=== PATIENT | female | born 1960 | race Caucasian/White ===

== ENCOUNTER 2017-05-18 20:49 | Emergency (ER) | payer OTHER ==
[2017-05-18 21:11] VITALS: O2SAT 97
--- NOTE | 2017-05-18 22:08 | C.PDOC ---
History Of Present Illness 57 year old female presents to the ED with complaints of a LUQ pain that radiates to her back with occasional reflux, that has been occurring for approximately a month. Patient reports PMD recommended her to have an outpatient abdominal CT done; she has one scheduled for 05/28, but states she did not want to wait. Patient denies acute abdominal pain at this time, with no nausea, vomiting, fever, or chills. denies cough and chest pain. no sob. no urinary symptoms. Time Seen by Provider: 05/18/17 21:52 Chief Complaint (Nursing): Abdominal Pain History Per: Patient History/Exam Limitations: no limitations Onset/Duration Of Symptoms: Days Current Symptoms Are (Timing): Still Present Context: Other Location Of Pain/Discomfort: LUQ Radiation Of Pain To:: Back Quality Of Discomfort: Unable To Describe Associated Symptoms: Other (Reflux). denies: Fever, Chills, Nausea, Vomiting Exacerbating Factors: None Alleviating Factors: None Recent travel outside of the [place]: No Abnormal Vaginal Bleeding: No Past Medical History Reviewed: Historical Data, Nursing Documentation, Vital Signs Vital Signs: Last Vital Signs Temp 98.9 F 05/19/17 02:22 Pulse 90 05/19/17 02:22 Resp 16 05/19/17 02:22 BP 128/78 05/19/17 02:22 Pulse Ox 97 05/21/17 21:48 - Medical History PMH: HTN (?), Hyperlipidemia, Migraine Surgical History: No Surg Hx - [facility] TETANUS TOXOID ADMINIST (08/25/14) Family History: States: Unknown Family Hx - Social History Hx Tobacco Use: No Hx Alcohol Use: No Hx Substance Use: No - Immunization History Hx Tetanus Toxoid Vaccination: No Hx Influenza Vaccination: No Hx Pneumococcal Vaccination: No Review Of Systems Constitutional: Negative for: Fever, Chills Gastrointestinal: Positive for: Abdominal Pain, Other (Reflux). Negative for: Nausea, Vomiting Musculoskeletal: Positive for: Back Pain (Radiating from abdomen) Physical Exam - Physical Exam Appears: Non-toxic, No Acute Distress Skin: Normal Color, Warm, Dry Head: Atraumatic, Normacephalic Oral Mucosa: Moist Throat: Normal, No Erythema Neck: Normal, No Midline Cervical Tenderness, Supple Chest: Symmetrical, No Deformity, No Tenderness Cardiovascular: Rhythm Regular, No Murmur Respiratory: Normal Breath Sounds, No Accessory Muscle Use, No Rales, No Rhonchi , No Wheezing Gastrointestinal/Abdominal: Soft, Tenderness (mild luq tenderness/left flank), No Distention, No Guarding, No Rebound Back: Normal Inspection, No CVA Tenderness Extremity: No Tenderness, No Calf Tenderness Neurological/Psych: Oriented x3, Normal Speech, Normal Cognition, Normal Motor, Normal Sensation ED Course And Treatment - Laboratory Results Result Diagrams: 05/18/17 23:01 05/18/17 23:01 O2 Sat by Pulse Oximetry: 97 (Room air) Pulse Ox Interpretation: Normal - CT Scan/US CT abd/pel Other Rad Studies (CT/US): Read By Radiologist, Radiology Report Reviewed CT/US Interpretation: EXAM: CT Abdomen and Pelvis With Intravenous Contrast. CLINICAL HISTORY: 57 years old, female; Pain; Abdominal pain; Additional info: Abd pain. TECHNIQUE: Axial computed tomography images of the abdomen and pelvis with intravenous contrast. All CT. scans at this facility use one or more dose reduction techniques, viz.: automated exposure control;. ma/kV adjustment per patient size (including targeted exams where dose is matched to indication; i.e. head); or iterative reconstruction technique. Coronal and sagittal reformatted images were created and reviewed. CONTRAST: 100 mL of [id number] administered intravenously. COMPARISON: No relevant prior studies available. FINDINGS: Artifacts: Motion artifact does moderately limit the sensitivity of this examination. Lower thorax: The visualized portions of the lung bases are normal. ABDOMEN: Liver: There are no focal liver lesions present. Gallbladder and bile ducts: The gallbladder is normal. No calcified stones. No ductal dilation. Pancreas: The pancreas is normal. No ductal dilation. Spleen: The spleen is normal. Adrenals: The adrenal glands are normal. Kidneys and ureters: The kidneys are normal. No hydronephrosis. Stomach and bowel: The stomach is normal. Colonic constipation is present. There is no evidence. of intestinal obstruction. No mucosal thickening. Appendix: A normal appendix is identified. PELVIS: Bladder: The bladder is normal. Reproductive: The uterus is normal. ABDOMEN and PELVIS: Intraperitoneal space: There is no evidence of free intraperitoneal fluid. There is no free. intraperitoneal air. Bones/joints: There are mild degenerative changes present. There is mild diffuse osteopenia. No. acute fracture. No dislocation. Soft tissues: There is a small fat containing periumbilical hernia. Vasculature: The aorta demonstrates mild atherosclerotic calcification. No abdominal aortic. aneurysm. Lymph nodes: There is mild left inguinal lymphadenopathy. IMPRESSION: 1. There is mild left inguinal lymphadenopathy. 2. No definite acute pathology identified in the abdomen or pelvis. 3. Motion artifact as described. 4. Additional incidental and/or chronic findings as described. Medical Decision Making Medical Decision Making: Plan: CT abdo/ pelvis, EKG, blood work, CXR, Urinalysis Disposition Counseled Patient/Family Regarding: Studies Performed, Diagnosis, Need For Followup - Disposition Referrals: Syeda Riggins MD [Staff Provider] - Disposition: HOME/ ROUTINE Disposition Time: 02:16 Condition: STABLE Additional Instructions: Follow up with Dr Riggins in next 1-2 days. Increase fiber in diet. Recommend you go see a formstone fitter and have a colonoscopy. Return to ER for any worsening symptoms, Follow up with your tub mender or urologist for blood in urine. Forms: [facility] (Maltese), General Discharge Instructions - Clinical Impression Clinical Impression: Abdominal pain - Scribe Statement The provider has reviewed the documentation as recorded by the Scribe Jr Brown All medical record entries made by the Zanderibe were at my direction and personally dictated by me. I have reviewed the chart and agree that the record accurately reflects my personal performance of the history, physical exam, medical decision making, and the department course for this patient. I have also personally directed, reviewed, and agree with the discharge instructions and disposition.
[2017-05-18 23:05] LABS: BASO % 0.7 % (0.0-2.0); EOS # 0.1 K/uL (0.0-0.7); EOS % 1.1 % (0.0-4.0); HEMATOCRIT 40.8 % (34.0-47.0); LYMPH # 2.5 K/uL (1.0-4.3); LYMPH % 41.8 % (20.0-40.0); MEAN CELL VOLUME 91.7 fL (81.0-99.0); MEAN CORPUSCULAR HGB CONC 33.8 g/dL (33.0-37.0); MEAN PLATELET VOLUME 9.3 fL (7.2-11.7); MONO # 0.4 K/uL (0.0-0.8); MONO % 6.6 % (0.0-10.0); NRBC % 0.1 % (0.0-2.0)
[2017-05-18 23:12] LABS: CHLORIDE 99 mmol/L (98-107)
[2017-05-18 23:13] LABS: POTASSIUM 3.8 mmol/L (3.6-5.2); SODIUM 135 mmol/L (132-148)
[2017-05-18 23:15] LABS: BILIRUBIN,TOTAL 0.7 mg/dL (0.2-1.3); CARBON DIOXIDE 26 mmol/L (22-30); GFR AFRICAN-AMERICAN > 60
[2017-05-18 23:16] LABS: ALB/GLOB RATIO 1.5 (1.0-2.1); ALKALINE PHOSPHATASE 45 U/L (38-126); ALT/SGPT 25 U/L (9-52); AST/SGOT 21 U/L (14-36); BLOOD UREA NITROGEN 15 mg/dL (7-17); CALCIUM 9.4 mg/dl (8.6-10.4); GLUCOSE,RANDOM 78 mg/dL (65-105); TOTAL PROTEIN 8.1 g/dL (6.3-8.3)
[2017-05-18 23:44] LABS: RBC URINE 1 /hpf (0-3); TRANSITIONAL EPITHIAL < 1 /hpf (0-3); URINE BACTERIA RARE (<OCC); URINE BILIRUBIN NEGATIVE (NEGATIVE); URINE BLOOD 1+ (NEGATIVE); URINE COLOR Colorless (YELLOW); URINE GLUCOSE (UA) NORMAL (Normal); URINE KETONE NEGATIVE (NEGATIVE); URINE LEUKOCYTE ESTERASE 1+ Leu/uL (Negative); URINE PROTEIN NEGATIVE (NEGATIVE); URINE UROBILINOGEN NORMAL mg/dL (0.2-1.0); WBC URINE 3 /hpf (0-5)
[2017-05-19 02:26] VITALS: BP 128/78; PULSE 90; RESP 16; TEMP 98.9
--- NOTE | 2017-05-19 04:06 | CT ---
EXAM: CT Abdomen and Pelvis With Intravenous Contrast CLINICAL HISTORY: 57 years old, female; Pain; Abdominal pain; Additional info: Abd pain TECHNIQUE: Axial computed tomography images of the abdomen and pelvis with intravenous contrast. All CT scans at this facility use one or more dose reduction techniques, viz.: automated exposure control; ma/kV adjustment per patient size (including targeted exams where dose is matched to indication; i.e. head); or iterative reconstruction technique. Coronal and sagittal reformatted images were created and reviewed. CONTRAST: 100 mL of [id number] administered intravenously. COMPARISON: No relevant prior studies available. FINDINGS: Artifacts: Motion artifact does moderately limit the sensitivity of this examination. Lower thorax: The visualized portions of the lung bases are normal. ABDOMEN: Liver: There are no focal liver lesions present. Gallbladder and bile ducts: The gallbladder is normal. No calcified stones. No ductal dilation. Pancreas: The pancreas is normal. No ductal dilation. Spleen: The spleen is normal. Adrenals: The adrenal glands are normal. Kidneys and ureters: The kidneys are normal. No hydronephrosis. Stomach and bowel: The stomach is normal. Colonic constipation is present. There is no evidence of intestinal obstruction. No mucosal thickening. Appendix: A normal appendix is identified. PELVIS: Bladder: The bladder is normal. Reproductive: The uterus is normal. ABDOMEN and PELVIS: Intraperitoneal space: There is no evidence of free intraperitoneal fluid. There is no free intraperitoneal air. Bones/joints: There are mild degenerative changes present. There is mild diffuse osteopenia. No acute fracture. No dislocation. Soft tissues: There is a small fat containing periumbilical hernia. Vasculature: The aorta demonstrates mild atherosclerotic calcification. No abdominal aortic aneurysm. Lymph nodes: There is mild left inguinal lymphadenopathy. IMPRESSION: 1. There is mild left inguinal lymphadenopathy. 2. No definite acute pathology identified in the abdomen or pelvis. 3. Motion artifact as described. 4. Additional incidental and/or chronic findings as described.
--- NOTE | 2017-05-19 11:34 | RAD ---
HISTORY: left side pain COMPARISON: Comparison is made to 01/28/2014 TECHNIQUE: Chest PA and lateral FINDINGS: LUNGS: No evidence of new infiltrate or consolidation in the lungs. Mild elevation of the right hemidiaphragm is noted. PLEURA: No significant pleural effusion identified. No pneumothorax apparent. CARDIOVASCULAR: Normal. OSSEOUS STRUCTURES: No significant abnormalities. VISUALIZED UPPER ABDOMEN: Normal. OTHER FINDINGS: None. IMPRESSION: No active disease.
== END 2017-05-19 02:22 | disposition home or self-care (01) ==
LOC: C.ER 20:49
DX: R10.12 Left upper quadrant pain (principal)